=== PATIENT | male | born 1950 | race Caucasian/White ===

== ENCOUNTER 2018-01-18 08:24 | Day surgery (SDC) | payer MEDICARE, OTHER ==
[~2018-01-18] VITALS: Ht 175.3 cm; Wt 109.7 kg
--- NOTE | 2018-01-18 09:45 | NUR ---
01/18/18 0945 Maribel Longo 0037 PT ARRIVED TO PACU DROWSY, RESP EVEN AND UNLABORED. PT REORINETED TO PACU. PT DENIES NAUSEA AND PAIN. PT BACK TO SLEEP. SNORING NOTED.
--- NOTE | 2018-01-18 10:37 | OR ---
[facility] [address] [place], [place] [address] Signed DATE OF OPERATION: SURGEON: Charlie Martin MD PREOPERATIVE DIAGNOSES: 1. Personal history of colonic polyps in 2013. 2. Diverticulosis. 3. Paternal grandmother with colon cancer, age 67. 4. Long redundant colon. POSTOPERATIVE DIAGNOSES: 1. 4 mm polyp at 25 cm. 2. Omexjsd-rm-citydbyi diverticulosis. 3. Long redundant colon. PROCEDURE: Colonoscopy without biopsy. ESTIMATED BLOOD LOSS: None. INDICATIONS: Paulette is a 67-year-old gentleman, asked to see me for a followup colonoscopy. He had colonic polyps removed in 2013, and is known to have diverticulosis along with a long redundant colon. In addition, his paternal grandmother had colon cancer at age 67. In the meantime, he said he is doing fine and he has no lower GI complaints. In the office, I gave him a pamphlet on colonoscopy. We looked at that together along with the risks including, but not limited to gas bloating, crampy abdominal pain, bleeding, perforation, requiring surgery, and missed diagnosis. He also understands the need for IV conscious sedation. He expressed understanding and wished to proceed. PROCEDURE NOTE: Paulette was taken into our endoscopy suite and placed in the left lateral decubitus position. He was given 7 mg of Versed and 150 mcg of fentanyl to cover the case. A digital rectal exam was performed. He does have an enlarged indurated prostate gland. It seems to be symmetric on both sides. After this, the adult colonoscope was introduced and advanced all around right next to the ileocecal valve under direct visualization of camera without difficulty. The only place we could not see was immediately behind the ileocecal valve. After this, the scope was slowly withdrawn. His prep was quite good. We did see just a small polyp back at 25 cm which we removed with hot biopsy forceps. He also has diverticulosis. They are moderate in size, Electronically Signed By: CHARLIE MARTIN MD 01/18/18 1037 PATIENT NAME: PAULETTE KENT JR OPERATIVE REPORT DATE OF : 48 REPORT #: [id number] PHYSICIAN: CHARLIE MARTIN MD PCP: JOLANTA FISHMAN MD REPORT IS CONFIDENTIAL AND NOT TO BE RELEASED WITHOUT AUTHORIZATION [facility] [address] [place], [place] [address] Signed vuyxvxo-[id number]-gwhaxtyt in number, and scattered about. He does have a long redundant colon. We took some abdominal compression in extra sedation or get the scope all the way up to the ileocecal valve. After this, the scope was then retroflexed in the rectum and there was no pathology above the anal canal. The gas was then suctioned out and the colonoscope removed. Paulette tolerated the procedure quite well. RECOMMENDATIONS: I will see Paulette back in my office in 7 to 14 days to review his results. It looks like he will need colonoscopy every 5 years based on his family history and his personal history of colonic polyps. Charlie Martin MD ALB/MODL /[id number] cc: MD Jolanta Fay MD Copies: CHARLIE MARTIN MD, DELWYN MD ~ Electronically Signed By: CHARLIE MARTIN MD 01/18/18 1037 PATIENT NAME: PAULETTE KENT JR OPERATIVE REPORT DATE OF : 48 REPORT #: [id number] PHYSICIAN: CHARLIE MARTIN MD PCP: JOLANTA FISHMAN MD REPORT IS CONFIDENTIAL AND NOT TO BE RELEASED WITHOUT AUTHORIZATION
== END 2018-01-18 10:25 | disposition home or self-care (01) ==
LOC: DS 08:24 → OPS 08:24 → DS 09:45 → OPS 10:25
PROVIDERS: Colon & Rectal Surgery
PROC: 0DBE8ZZ Excision of Large Intestine, Via Natural or Artificial Opening Endoscopic (ICD-10-PCS; principal; 2018-01-18 09:45)
DX: Z12.11 Encounter for screening for malignant neoplasm of colon (principal); K63.5 Polyp of colon; Q43.8 Other specified congenital malformations of intestine; N40.0 Benign prostatic hyperplasia without lower urinary tract symptoms; E78.5 Hyperlipidemia, unspecified; E66.01 Morbid (severe) obesity due to excess calories; F17.210 Nicotine dependence, cigarettes, uncomplicated; Z86.010 Personal history of colon polyps; Z80.0 Family history of malignant neoplasm of digestive organs; Z68.35 Body mass index [BMI] 35.0-35.9, adult
CPT/HCPCS: 99153; G0500; J2250; J3010; J7120

== ENCOUNTER → 2022-04-18 | Emergency (ER) | payer OTHER, MEDICARE ==
[~2022-04-18] VITALS: Ht 175.3 cm; Wt 97.5 kg
[~2022-04-18] MED LIST: ASPIRIN81 MG PO; CRESTOR20 MG PO; NORVASC10 MG PO; TOPROL XL50 MG PO
--- NOTE | 2022-04-18 14:30 | EKG ---
[facility] [address] [facility] [place] [address] Signed Sinus rhythm with marked sinus arrhythmia Left axis deviation Low voltage QRS Abnormal ECG No previous ECGs available Confirmed by NAGA RAMIREZ MD ([id number]) on 04/18/2022 2:29:51 PM Electronically Signed By: NAGA RAMIREZ MD 04/18/22 1430 PATIENT NAME: DONTE TOPETEPAULETTE Suzy Electrocardiogram DATE OF : 48 PHYSICIAN: NAGA RAMIREZ MD REPORT #: [id number] REPORT IS CONFIDENTIAL AND NOT TO BE RELEASED WITHOUT AUTHORIZATION
== END ==
LOC: ED 11:49
DX: S02.31XA Fracture of orbital floor, right side, initial encounter for closed fracture (principal); S02.2XXA Fracture of nasal bones, initial encounter for closed fracture; M75.102 Unspecified rotator cuff tear or rupture of left shoulder, not specified as traumatic; S22.41XA Multiple fractures of ribs, right side, initial encounter for closed fracture; S00.11XA Contusion of right eyelid and periocular area, initial encounter; V86.99XA Unspecified occupant of other special all-terrain or other off-road motor vehicle injured in nontraffic accident, initial encounter; F17.200 Nicotine dependence, unspecified, uncomplicated; Z79.899 Other long term (current) drug therapy; Z79.82 Long term (current) use of aspirin
CPT/HCPCS: 36415; 70450; 70486; 71045; 71260; 72125; 73030; 73502; 80053; 82150; 82553; 83605; 83690; 85025; 86850; 86900; 86901; 87502; 90471; 90715; 93005; 93010; 96375; 96376; 99285-25; G0480; J0295; J2270; J2405; Q9967; U0003

== ENCOUNTER 2025-03-14 14:38 | Emergency (ER) | payer MEDICARE, OTHER ==
[~2025-03-14] VITALS: Ht 175.3 cm; Wt 104.0 kg
[2025-03-14 15:48] VITALS: BP 138/77
== END 2025-03-14 15:49 | disposition home or self-care (01) ==
LOC: ED 14:38
DX: S01.511A Laceration without foreign body of lip, initial encounter (principal); I10 Essential (primary) hypertension; F17.200 Nicotine dependence, unspecified, uncomplicated; W26.9XXA Contact with unspecified sharp object(s), initial encounter; Z79.82 Long term (current) use of aspirin; Z79.899 Other long term (current) drug therapy
CPT/HCPCS: 12011; 99282